=== PATIENT | female | born 1950 | race Caucasian/White ===

== ENCOUNTER 2017-06-04 17:47 | Emergency (ER) | payer MEDICARE ==
[~2017-06-04] VITALS: Ht 154.9 cm; Wt 77.1 kg
[2017-06-04 19:31] LABS: CLARITY,URINE SL CLOUDY (CLEAR); COLOR,URINE YELLOW (YELLOW)
[2017-06-04 19:32] LABS: BILIRUBIN,URINE NEGATIVE (NEGATIVE); KETONES,URINE TRACE (NEGATIVE); LEUKOCYTE ESTERASE ,URINE NEGATIVE (NEGATIVE); NITRITE,URINE NEGATIVE (NEGATIVE); PROTEIN,URINE DIPSTICK NEGATIVE (NEGATIVE); URINE UROBILINOGEN 0.2 mg/dL (0.2 - 1)
[2017-06-04 20:03] LABS: BACTERIA,URINE MODERATE /HPF; EPITHELIAL CELLS,URINE FEW /LPF; MUCUS,URINE FEW (RARE)
[2017-06-04] MEDS ORDERED: PYRIDIUM100 MG PO (20:26)
[2017-06-04] MEDS ORDERED: MACROBID 100 M100 MG PO (20:26)
[2017-06-04 20:34] VITALS: BP 132/86
== END 2017-06-04 20:39 | disposition home or self-care (01) ==
LOC: ER 17:47
DX: R30.0 Dysuria (principal)
CPT/HCPCS: 81001; 87086; 87186; 99282